=== PATIENT | female | born 1945 | race Caucasian/White ===

== ENCOUNTER 2021-05-09 16:21 | Emergency (ER) | payer MEDICARE ==
[~2021-05-09 16:21] MED LIST: BENZTROPINE MESY1 MG PO; CLARITIN10 MG PO; FLONASE ALLER15.8 ML; LEXAPRO20 MG PO; MELATONIN3 MG PO; PROTONIX 40MG T40 MG PO; RISPERDAL3 MG PO; ZESTRIL5 MG PO
== END 2021-05-09 17:52 | disposition home or self-care (01) ==
LOC: FER 16:21
DX: S60.221A Contusion of right hand, initial encounter (principal); M25.531 Pain in right wrist; M79.644 Pain in right finger(s); W01.0XXA Fall on same level from slipping, tripping and stumbling without subsequent striking against object, initial encounter
CPT/HCPCS: 73130

== ENCOUNTER 2021-08-01 14:47 | Inpatient (IN) | payer MEDICARE ==
[~2021-08-01] VITALS: Ht 162.6 cm; Wt 75.9 kg
[2021-08-01 16:20] LABS: BASOPHIL 0.6 % (0-2); EOSINOPHIL 2.3 % (0-7); HCT 38.9 % (37.0-47.0); HGB 12.9 g/dl (12.5-16.0); LYMPHOCYTE 45.3 % (15-48); MCH 32.2 pg (25.0-31.0); MCHC 33.2 g/dL (32.0-36.0); MONOCYTE 8.9 % (0-12); MPV 10.2 fL (6.0-9.5); NEUTROPHIL 42.5 % (41-80); NRBC 0; PLT 175 K/uL (150-400); RBC 4.01 M/uL (4.20-5.40)
[2021-08-01 16:28] LABS: ALBUMIN 3.2 g/dL (3.4-5.0); BILIRUBIN - TOTAL 0.2 mg/dL (0.2-1.0); BUN/CREAT RATIO (CALC) 12.6 RATIO; CREATININE 0.87 mg/dL (0.51-0.95); GLOBULIN (CALCULATION) 3.6 g/dL; MAGNESIUM 1.8 mg/dL (1.8-2.4); POTASSIUM 4.2 mmol/L (3.5-5.1); TOTAL PROTEIN 6.8 g/dL (6.4-8.2)
[2021-08-01 16:35] LABS: INR 1.03 (0.9-1.2); PROTHROMBIN TIME 12.9 SECONDS (11.8-13.4); PTT 31.1 SECONDS (24.4-34.7)
[2021-08-01 16:49] LABS: BILIRUBIN NEGATIVE (NEGATIVE); BLOOD NEGATIVE Ery/uL (NEGATIVE); CLARITY HAZY (CLEAR); COLOR YELLOW (YELLOW); GLUCOSE (U) NORMAL (NORMAL); LEUKOCYTES NEGATIVE Leu/uL (NEGATIVE); NITRITE NEGATIVE (NEGATIVE); PROTEIN NEGATIVE (NEGATIVE); SPECIFIC GRAVITY >=1.030 (1.001-1.030); UROBILINOGEN 0.2 mg/dL (0.2-1.0); pH 5.5 (5.0-9.0)
[2021-08-01] MEDS ORDERED: ALPHAGAN 020 DROPS/M OD (18:08)
[2021-08-01] MEDS ORDERED: SENNA PLUS 8.61 EACH PO (18:10)
[2021-08-01] MEDS ORDERED: DEPAKOTE SPRIN125 M2 PO (18:15)
[2021-08-01] MEDS ORDERED: SYNTHROID25 MCG PO (18:17)
[2021-08-01] MEDS ORDERED: OMEPRAZOLE 20MG20 MG PO (18:18)
[2021-08-01] MEDS ORDERED: VITAMIN D21250 MCG PO (18:19)
[2021-08-01] MEDS ORDERED: SEROQUEL 25MG T25 MG PO (18:23)
[2021-08-01] MEDS ORDERED: PRAVACHOL20 MG PO (18:25)
[2021-08-03 06:33] LABS: BASOPHIL 0.4 % (0-2); EOSINOPHIL 0 % (0-7); HCT 37.2 % (37.0-47.0); HGB 12.5 g/dl (12.5-16.0); LYMPHOCYTE 14.6 % (15-48); MCH 32.6 pg (25.0-31.0); MCHC 33.6 g/dL (32.0-36.0); MCV 96.9 fL (78.0-100.0); MONOCYTE 6.8 % (0-12); MPV 9.9 fL (6.0-9.5); NEUTROPHIL 77.7 % (41-80); NRBC 0; PLT 146 K/uL (150-400); RBC 3.84 M/uL (4.20-5.40); RDW 13.4 % (11.5-14.0); WBC 7.8 K/uL (4.0-10.5)
[2021-08-03 06:54] LABS: ALBUMIN 3.1 g/dL (3.4-5.0); BILIRUBIN - TOTAL 0.5 mg/dL (0.2-1.0); BUN/CREAT RATIO (CALC) 21.4 RATIO; CREATININE 0.84 mg/dL (0.51-0.95); GLOBULIN (CALCULATION) 3.9 g/dL; POTASSIUM 4.3 mmol/L (3.5-5.1)
[2021-08-04 07:13] LABS: HCT 33.1 % (37.0-47.0); MCH 32.4 pg (25.0-31.0); MCHC 33.2 g/dL (32.0-36.0); MCV 97.4 fL (78.0-100.0); MPV 9.9 fL (6.0-9.5); RBC 3.4 M/uL (4.20-5.40); RDW 13.4 % (11.5-14.0); WBC 9.6 K/uL (4.0-10.5)
[2021-08-05 06:15] LABS: BASOPHIL 0.5 % (0-2); EOSINOPHIL 1.1 % (0-7); HCT 30.1 % (37.0-47.0); HGB 9.9 g/dl (12.5-16.0); LYMPHOCYTE 23.8 % (15-48); MCH 31.8 pg (25.0-31.0); MCHC 32.9 g/dL (32.0-36.0); MCV 96.8 fL (78.0-100.0); MONOCYTE 9.4 % (0-12); NEUTROPHIL 64.8 % (41-80); NRBC 0; PLT 141 K/uL (150-400); RBC 3.11 M/uL (4.20-5.40); RDW 13.4 % (11.5-14.0); WBC 7.9 K/uL (4.0-10.5)
[2021-08-05 06:33] LABS: BUN/CREAT RATIO (CALC) 27.4 RATIO; CREATININE 0.95 mg/dL (0.51-0.95)
--- NOTE | 2021-08-05 10:15 | NUR ---
[address] SETH THAT THE PATIENT IS VERY SLEEPY AFTER TAKING THE PAIN MEDICATIONS, MAY NEED TO CHANGE THE PAIN MEDICATION TO SOMETHING THAT IS NOT SO STRONG. ALSO NOTIFED THAT HER IV SITE IS IN HER LEFT FOOT. REPORTS THAT SHE WILL LOOK AT THE PATIENT AND WRITE SOME ORDERS.
--- NOTE | 2021-08-05 17:40 | NUR ---
[address] YORK ABOUT THE IV IN THE LEFT FOOT AND THE ORDER SAID TO LEAVE IT FOR 12 HOURS. NEW ORDERS TO LEAVE THE IV SITE IN PLACE PATIENT A VERY HARD STICK. IV SITE FLUSHED EASILY AND THERE IS NO REDDNESS, EDMA OR TENDERNESS NOTED AT THE SITE. WILL CONTINUE TO MONITOR FOR CHANGES.
--- NOTE | 2021-08-06 15:00 | NUR ---
[facility] ACCEPTED PATIENT CLINICALLY AND WILL SUBMIT TO THE INSURANCE COMPANY. ADVISED PATRICE JONES.
[2021-08-07 06:06] LABS: BASOPHIL 0.5 % (0-2); HCT 28.2 % (37.0-47.0); HGB 9.2 g/dl (12.5-16.0); LYMPHOCYTE 30.2 % (15-48); MCH 31.9 pg (25.0-31.0); MCHC 32.6 g/dL (32.0-36.0); MCV 97.9 fL (78.0-100.0); MONOCYTE 9.2 % (0-12); MPV 9.4 fL (6.0-9.5); NEUTROPHIL 55.3 % (41-80); NRBC 0; PLT 163 K/uL (150-400); RBC 2.88 M/uL (4.20-5.40); RDW 13.4 % (11.5-14.0); WBC 6.5 K/uL (4.0-10.5)
[2021-08-07 06:43] LABS: BILIRUBIN - TOTAL 0.4 mg/dL (0.2-1.0); BUN/CREAT RATIO (CALC) 12.8 RATIO; CREATININE 0.78 mg/dL (0.51-0.95); GLOBULIN (CALCULATION) 3.3 g/dL; TOTAL PROTEIN 5.3 g/dL (6.4-8.2)
[2021-08-07] MEDS ORDERED: FEOSOL325 MG PO (09:54)
[2021-08-07] MEDS ORDERED: NORCO 5-325 TA1 EACH PO (09:54)
[2021-08-07] MEDS ORDERED: XARELTO10 MG PO (09:54)
--- NOTE | 2021-08-07 10:22 | NUR ---
PT HAS BEEN ACCEPTED BY [facility] BOTH CLINICALLY AND INSURANCE. PT. WILL D/C TODAY. PHONE NUMBER FOR REPORT [phone] FAX REPORT IS [phone].
--- NOTE | 2021-08-07 10:32 | NUR ---
TC TO PT. PATRICE, MRS. OSORIO. ADVISED THAT PT HAS BEEN APPROVED AT [facility]. PATRICE WANTS PT. TRANSFERRED BY EMS. ADVISED HER THAT EMS MAY CALL HER TO ADVISE THAT PT. MAY BE RESPONSIBLE FOR THE EMS TRANSPORATION. MRS. OSORIO ACKNOLEDGED UNDERSTANDING.
== END 2021-08-07 16:25 | DRG 522 ==
LOC: FER 14:47 → FMS 16:49
PROVIDERS: Emergency Medicine; Internal Medicine; Nurse Practitioner; Orthopaedic Surgery; ADMIT Hospitalist
PROC: 0SR90JA Replacement of Right Hip Joint with Synthetic Substitute, Uncemented, Open Approach (ICD-10-PCS; principal; 2021-08-03 13:30)
DX: S72.001A Fracture of unspecified part of neck of right femur, initial encounter for closed fracture (principal); F32.9 Major depressive disorder, single episode, unspecified; F32.A Depression, unspecified; E03.9 Hypothyroidism, unspecified; Z20.822 Contact with and (suspected) exposure to COVID-19; D64.89 Other specified anemias; I10 Essential (primary) hypertension; H40.9 Unspecified glaucoma; K59.09 Other constipation; Z88.0 Allergy status to penicillin; Z88.5 Allergy status to narcotic agent; Z86.73 Personal history of transient ischemic attack (TIA), and cerebral infarction without residual deficits; Z98.890 Other specified postprocedural states; W19.XXXA Unspecified fall, initial encounter; Y92.009 Unspecified place in unspecified non-institutional (private) residence as the place of occurrence of the external cause
CPT/HCPCS: 36415; 71045; 73501; 73502; 76000; 80048; 80053; 81003; 83735; 85025; 85610; 85730; 86850; 86900; 86901; 93005; 94760; 94762; 96374; 96375; 97110; 97162; 97166; 97530; 97530-GP; C1776; J0171; J1100; J1170; J1885; J2405; J2704; J2795; J3010; J7120; U0002

== ENCOUNTER 2021-11-27 16:05 | Emergency (ER) | payer MEDICARE ==
[~2021-11-27 16:05] MED LIST changes: +ALPHAGAN 020 DROPS/M OD; +DEPAKOTE SPRIN125 M2 PO; +FEOSOL325 MG PO; +NORCO 5-325 TA1 EACH PO; +OMEPRAZOLE 20MG20 MG PO; +PRAVACHOL20 MG PO; +SENNA PLUS 8.61 EACH PO; +SEROQUEL 25MG T25 MG PO; +SYNTHROID25 MCG PO; +VITAMIN D21250 MCG PO; +XARELTO10 MG PO
[2021-11-27] MEDS ORDERED: BACTROBAN NASAL1 GM TOP (18:13)
== END 2021-11-27 20:56 | disposition home or self-care (01) ==
LOC: FER 16:05
DX: S70.02XA Contusion of left hip, initial encounter (principal); Z88.0 Allergy status to penicillin; Z88.5 Allergy status to narcotic agent
CPT/HCPCS: 73502

== ENCOUNTER 2021-12-07 11:41 | Inpatient (IN) | payer MEDICARE ==
[~2021-12-07] VITALS: Ht 162.6 cm; Wt 60.1 kg
[~2021-12-07 11:41] MED LIST changes: +BACTROBAN NASAL1 GM TOP
[2021-12-07 14:14] LABS: BASOPHIL 0.6 % (0-2); EOSINOPHIL 0.6 % (0-7); HGB 14.7 g/dl (12.5-16.0); MCH 31.7 pg (25.0-31.0); MCHC 33.4 g/dL (32.0-36.0); MCV 94.8 fL (78.0-100.0); MONOCYTE 7.5 % (0-12); MPV 10.2 fL (6.0-9.5); NEUTROPHIL 51.1 % (41-80); NRBC 0.4; PLT 185 K/uL (150-400); RBC 4.64 M/uL (4.20-5.40); RDW 17.7 % (11.5-14.0); WBC 5.1 K/uL (4.0-10.5)
[2021-12-07 14:39] LABS: LACTIC ACID 3.7 mmol/L (0.4-1.9)
[2021-12-07 14:47] LABS: BILIRUBIN - TOTAL 1.2 mg/dL (0.2-1.0); BUN/CREAT RATIO (CALC) 25.9 RATIO; CREATININE 0.85 mg/dL (0.51-0.95); GLOBULIN (CALCULATION) 3.6 g/dL; MAGNESIUM 2.1 mg/dL (1.8-2.4); POTASSIUM 3.2 mmol/L (3.5-5.1); TOTAL PROTEIN 6.6 g/dL (6.4-8.2)
[2021-12-07 15:38] LABS: BILIRUBIN 2+ mg/dL (NEGATIVE); BLOOD 2+ Ery/uL (NEGATIVE); CLARITY CLEAR (CLEAR); COLOR YELLOW (YELLOW); GLUCOSE (U) TRACE mg/dL (NORMAL); LEUKOCYTES TRACE Leu/uL (NEGATIVE); NITRITE NEGATIVE (NEGATIVE); PROTEIN 1+ mg/dL (NEGATIVE); SPECIFIC GRAVITY >=1.030 (1.001-1.030)
[2021-12-07 15:41] LABS: BACTERIA 3+; MUCOUS TRACE
[2021-12-07] MEDS ORDERED: PRILOSEC20 MG PO (19:51)
[2021-12-07] MEDS ORDERED: VITAMIN D-40010 MCG PO (19:52)
[2021-12-07] MEDS ORDERED: LEXAPRO 10MG TA10 MG PO (19:54)
[2021-12-07] MEDS ORDERED: DEPAKOTE125 MG PO (19:55)
[2021-12-07] MEDS ORDERED: LEVOXYL25 MCG PO (19:55)
[2021-12-07] MEDS ORDERED: PRAVASTATIN SOD10 MG PO (20:02)
[2021-12-07] MEDS ORDERED: XERMELO250 MG PO (20:04)
[2021-12-09 07:24] LABS: BASOPHIL 0.8 % (0-2); EOSINOPHIL 3.4 % (0-7); HCT 33.5 % (37.0-47.0); HGB 10.9 g/dl (12.5-16.0); MCH 32.1 pg (25.0-31.0); MCHC 32.5 g/dL (32.0-36.0); MCV 98.5 fL (78.0-100.0); MONOCYTE 8.7 % (0-12); MPV 9.8 fL (6.0-9.5); NEUTROPHIL 35.7 % (41-80); NRBC 0; PLT 107 K/uL (150-400); WBC 4.9 K/uL (4.0-10.5)
[2021-12-09 07:42] LABS: BUN/CREAT RATIO (CALC) 15.1 RATIO; CREATININE 0.73 mg/dL (0.51-0.95)
[2021-12-09 07:57] LABS: POTASSIUM 2.3 mmol/L (3.5-5.1)
[2021-12-10 06:48] LABS: BASOPHIL 0.7 % (0-2); EOSINOPHIL 1.5 % (0-7); HCT 33.1 % (37.0-47.0); HGB 11.2 g/dl (12.5-16.0); MCH 32.2 pg (25.0-31.0); MCHC 33.8 g/dL (32.0-36.0); MCV 95.1 fL (78.0-100.0); MONOCYTE 9.1 % (0-12); MPV 10.1 fL (6.0-9.5); NEUTROPHIL 41.8 % (41-80); NRBC 0; PLT 121 K/uL (150-400); RBC 3.48 M/uL (4.20-5.40); RDW 17.3 % (11.5-14.0); WBC 5.8 K/uL (4.0-10.5)
[2021-12-10 07:09] LABS: BUN/CREAT RATIO (CALC) 8.8 RATIO; CREATININE 0.57 mg/dL (0.51-0.95)
[2021-12-10 07:30] LABS: POTASSIUM 2.4 mmol/L (3.5-5.1)
[2021-12-11 07:19] LABS: BUN/CREAT RATIO (CALC) 14.5 RATIO; CREATININE 0.62 mg/dL (0.51-0.95); POTASSIUM 3.6 mmol/L (3.5-5.1)
[2021-12-12 06:12] LABS: BASOPHIL 1.1 % (0-2); EOSINOPHIL 2.6 % (0-7); HCT 38.9 % (37.0-47.0); HGB 12.5 g/dl (12.5-16.0); LYMPHOCYTE 39.3 % (15-48); MCH 31.8 pg (25.0-31.0); MCHC 32.1 g/dL (32.0-36.0); MONOCYTE 11.4 % (0-12); MPV 10.6 fL (6.0-9.5); NEUTROPHIL 44.7 % (41-80); NRBC 0; RBC 3.93 M/uL (4.20-5.40); RDW 18.8 % (11.5-14.0); WBC 4.7 K/uL (4.0-10.5)
[2021-12-12 06:16] LABS: PLT 127 K/uL (150-400)
[2021-12-12 07:04] LABS: CREATININE 0.6 mg/dL (0.51-0.95); POTASSIUM 3.5 mmol/L (3.5-5.1)
[2021-12-12 07:08] LABS: IRON % SATURATION 61.1 %SAT (20-50)
[2021-12-14] MEDS ORDERED: LEVOXYL25 MCG PO (07:23)
[2021-12-14] MEDS ORDERED: XERMELO250 MG PO (07:30)
[2021-12-14] MEDS ORDERED: SEROQUEL 25MG T25 MG PO (11:12)
== END 2021-12-14 12:56 | disposition home or self-care (01) | DRG 871 ==
LOC: FER 11:41 → FMS 18:24
PROVIDERS: Emergency Medicine; Family Medicine; ADMIT Allergy & Immunology Allergy
DX: A41.9 Sepsis, unspecified organism (principal); G93.41 Metabolic encephalopathy; N30.01 Acute cystitis with hematuria; Z66 Do not resuscitate; E86.0 Dehydration; R65.20 Severe sepsis without septic shock; Z20.822 Contact with and (suspected) exposure to COVID-19; L89.120 Pressure ulcer of left upper back, unstageable; L89.220 Pressure ulcer of left hip, unstageable; I10 Essential (primary) hypertension; F41.9 Anxiety disorder, unspecified; F32.A Depression, unspecified; K21.9 Gastro-esophageal reflux disease without esophagitis; F03.90 Unspecified dementia, unspecified severity, without behavioral disturbance, psychotic disturbance, mood disturbance, and anxiety; E87.6 Hypokalemia; K59.01 Slow transit constipation; D69.6 Thrombocytopenia, unspecified; D64.9 Anemia, unspecified; E03.9 Hypothyroidism, unspecified; Z79.899 Other long term (current) drug therapy; Z88.0 Allergy status to penicillin; Z88.5 Allergy status to narcotic agent; Z98.41 Cataract extraction status, right eye; Z98.42 Cataract extraction status, left eye
CPT/HCPCS: 36415; 71045; 80048; 80053; 80202; 81001; 82607; 83540; 83550; 83605; 83735; 84145; 84443; 84484; 85025; 87040; 87088; 93005; 94010; 94760; 97162; 97166; 97530-GP; 97535; J0692; J1650; J3370; J7030; J7050; U0002

== ENCOUNTER 2022-01-25 22:27 | Inpatient (IN) | payer MEDICARE ==
[~2022-01-25] VITALS: Ht 160 cm; Wt 48.6 kg
[~2022-01-25 22:27] MED LIST changes: +DEPAKOTE125 MG PO; +LEVOXYL25 MCG PO; +LEXAPRO 10MG TA10 MG PO; +PRAVASTATIN SOD10 MG PO; +PRILOSEC20 MG PO; +VITAMIN D-40010 MCG PO; +XERMELO250 MG PO
[2022-01-25 23:30] LABS: BASOPHIL 0.3 % (0-2); EOSINOPHIL 0.1 % (0-7); HCT 51.2 % (37.0-47.0); HGB 15.8 g/dl (12.5-16.0); LYMPHOCYTE 21.5 % (15-48); MCH 33.3 pg (25.0-31.0); MCHC 30.9 g/dL (32.0-36.0); MPV 12.1 fL (6.0-9.5); NEUTROPHIL 73.2 % (41-80); NRBC 1.2; PLT 190 K/uL (150-400); RBC 4.74 M/uL (4.20-5.40); RDW 16.4 % (11.5-14.0); WBC 13.6 K/uL (4.0-10.5)
[2022-01-25 23:31] LABS: BILIRUBIN 2+ mg/dL (NEGATIVE); BLOOD 3+ Ery/uL (NEGATIVE); CLARITY CLEAR (CLEAR); COLOR YELLOW (YELLOW); GLUCOSE (U) NORMAL (NORMAL); LEUKOCYTES 2+ Leu/uL (NEGATIVE); NITRITE POSITIVE (NEGATIVE); PROTEIN 2+ mg/dL (NEGATIVE); SPECIFIC GRAVITY 1.025 (1.001-1.030)
[2022-01-25 23:35] LABS: INR 1.6 (0.9-1.2); PROTHROMBIN TIME 18.3 SECONDS (11.8-13.4); PTT 26.1 SECONDS (24.4-34.7)
[2022-01-25 23:46] LABS: BACTERIA 2+; URINARY WBC TNTC
[2022-01-25 23:47] LABS: GRANULAR CASTS MODERATE
[2022-01-25 23:51] LABS: ALBUMIN 3.6 g/dL (3.4-5.0); BILIRUBIN - TOTAL 1.2 mg/dL (0.2-1.0); CREATININE 2.62 mg/dL (0.51-0.95); FT4 (FREE T4) 1.4 ng/dL (0.76-1.46); MAGNESIUM 2.8 mg/dL (1.8-2.4); POTASSIUM 2.8 mmol/L (3.5-5.1); TOTAL PROTEIN 7.6 g/dL (6.4-8.2)
[2022-01-26 00:05] LABS: LACTIC ACID 8.2 mmol/L (0.4-1.9)
[2022-01-26 00:28] LABS: CORONAVIRUS 2019 SARS-COV-2 NEGATIVE (NEGATIVE); INFLUENZA A NAA NEGATIVE (NEGATIVE)
[2022-01-26 11:21] LABS: CREATININE 2.56 mg/dL (0.51-0.95); POTASSIUM 2.5 mmol/L (3.5-5.1)
[2022-01-26 11:32] LABS: LACTIC ACID 2.4 mmol/L (0.4-1.9)
[2022-01-26 14:38] LABS: CREATININE 2.44 mg/dL (0.51-0.95); POTASSIUM 2.9 mmol/L (3.5-5.1)
[2022-01-26 17:58] LABS: CREATININE 2.46 mg/dL (0.51-0.95); POTASSIUM 3.4 mmol/L (3.5-5.1)
--- NOTE | 2022-01-26 18:10 | NUR ---
20+ PUNCTURE SITE NOVOA FROM MULTIPLE ATTEMPTS AT CENTRAL LINE PLACEMENT OF RIJ,SC, AND BILATERAL FEMORAL SITES. PICTURES WERE TAKEN AND CHEST XRAY WAS OBTAINED TO CHECK FOR ANY INTERNAL DAMAGE SUCH PNEUMO. PATIENT WAS SENT TO ICU FLOOR WITH 24GA PERIPHERAL IV ACCESS. 30ML/KG IVF BOLUS WAS NOT GIVEN PER PROTOCOL AND VANC WAS NOT GIVEN. TROPONIN WAS ELEVATED, NO EKG WAS OBTAINED IN ED. NO TREATMENT OF POTASSIUM IN ED WITH A K OF 2.8. PATIENT WAS IN ED 2217 RN STATED VANC WAS NOT GIVEN IN REPORT BEFORE BRINGING PATIENT AND STATED SHE WAS GOING TO RECHART TO RECORD NOT GIVEN. SPOKE WITH GIN PRO SUP OF SITUATION. PATIENT DOES NOT HAVE FAMILY TO CONTACT ANYMORE. THE NEICE WAS ASSISTING WITH CARE BUT HAS AND GREAT NEPHEW NO LONGER KEEPS IN TOUCH. CONSULT FOR INITIATION OF LEGAL PAPERWORK FOR MELCHOR OF THE [facility]. CALLED [facility] TO CONFIRM SITUATION AND THEY CONFIRMED THERE WERE NO OTHER FAMILY TO CONTACT. ALSO CHECKED ABOUT PATIENTS BASELINE, STAFF STATED PATIENT ONLY SAYS FEW WORDS AND WILL RARELY FOLLOW COMMANDS. HAS BECOME A FAILURE TO THRIVE FOR OVER A MONTH AND REFUSING TO TAKE MEDICATIONS. CENTRAL LINE WAS PLACED RIJ WITH NO COMPLICATIONS. CONSENT FORM WAS COMPLETED BY STAFF A EMERGENT SITUATION DUE TO LACK OF PROPER IV ACCESS. MACHINE ENGRAVER GIN IS AWARE OF FULL SITUATION WITH PATIENT.
[2022-01-26 23:30] LABS: CREATININE 2.25 mg/dL (0.51-0.95); POTASSIUM 3.1 mmol/L (3.5-5.1)
[2022-01-27 05:27] LABS: BASOPHIL 0.4 % (0-2); EOSINOPHIL 0.3 % (0-7); HCT 29.4 % (37.0-47.0); LYMPHOCYTE 35.1 % (15-48); MCH 33.8 pg (25.0-31.0); MCHC 30.3 g/dL (32.0-36.0); MCV 111.8 fL (78.0-100.0); MONOCYTE 4.9 % (0-12); MPV 11.8 fL (6.0-9.5); NEUTROPHIL 57.7 % (41-80); NRBC 1.8; PLT 115 K/uL (150-400); RBC 2.63 M/uL (4.20-5.40); RDW 16.7 % (11.5-14.0)
[2022-01-27 05:40] LABS: HGB 8.9 g/dl (12.5-16.0)
[2022-01-27 06:28] LABS: ALBUMIN 2.3 g/dL (3.4-5.0); BILIRUBIN - DIRECT 0.1 mg/dL (0.00-0.20); BILIRUBIN - TOTAL 0.6 mg/dL (0.2-1.0); BUN/CREAT RATIO (CALC) 36.4 RATIO; C-REACTIVE PROTEIN 0.6 mg/dL (<=0.90); CREATININE 1.95 mg/dL (0.51-0.95); PHOSPHORUS 1.5 mg/dL (2.6-4.7); POTASSIUM 3.2 mmol/L (3.5-5.1)
[2022-01-27 06:37] LABS: GLOBULIN (CALCULATION) 2.5 g/dL; TOTAL PROTEIN 4.8 g/dL (6.4-8.2)
[2022-01-27 12:12] LABS: BUN/CREAT RATIO (CALC) 34.7 RATIO; CREATININE 1.7 mg/dL (0.51-0.95); POTASSIUM 3.3 mmol/L (3.5-5.1)
[2022-01-27 16:25] LABS: BASOPHIL 0.3 % (0-2); EOSINOPHIL 0.6 % (0-7); HCT 28.4 % (37.0-47.0); HGB 8.7 g/dl (12.5-16.0); LYMPHOCYTE 33.7 % (15-48); MCH 33.7 pg (25.0-31.0); MCHC 30.6 g/dL (32.0-36.0); MCV 110.1 fL (78.0-100.0); MONOCYTE 4.2 % (0-12); MPV 10.9 fL (6.0-9.5); NEUTROPHIL 59.6 % (41-80); NRBC 2.1; PLT 102 K/uL (150-400); RBC 2.58 M/uL (4.20-5.40); RDW 16.5 % (11.5-14.0); WBC 11.6 K/uL (4.0-10.5)
[2022-01-27 16:47] LABS: ALBUMIN 2.2 g/dL (3.4-5.0); BILIRUBIN - DIRECT 0.2 mg/dL (0.00-0.20); BILIRUBIN - TOTAL 0.6 mg/dL (0.2-1.0); GLOBULIN (CALCULATION) 2.6 g/dL; TOTAL PROTEIN 4.8 g/dL (6.4-8.2)
[2022-01-27 16:48] LABS: CREATININE 1.57 mg/dL (0.51-0.95); POTASSIUM 3.2 mmol/L (3.5-5.1)
--- NOTE | 2022-01-27 18:33 | NUR ---
SPOKE WITH PARTNER REGARDING [facility] AND STATUS. GAVE FULL REPORT AND CONCERNS. HE DIDNT UNDERSTAND WHY PATIENT WASNT MAKING URINE EVEN THOUGH CREAT HAD IMPROVED 2.25 TO 1.95 AND BUN 82 TO 71. HE WAS CONCERNED SOMETHING WAS WRONG WITH CATHETER. I EXPLAINED THE CATHETER WAS CHECKED AND PATIENT WAS BLADDER SCANNED TO CONFIRM NO RESIDUAL. HE STATED WOULD CALL SUNDAY 01/28 TO CHECK IN. NO CHANGE WAS DONE WITH FLUIDS
[2022-01-27 19:45] LABS: BUN/CREAT RATIO (CALC) 32.9 RATIO; CREATININE 1.52 mg/dL (0.51-0.95); POTASSIUM 3.4 mmol/L (3.5-5.1)
[2022-01-27 23:05] LABS: BUN/CREAT RATIO (CALC) 31.2 RATIO; CREATININE 1.41 mg/dL (0.51-0.95); PHOSPHORUS 2.8 mg/dL (2.6-4.7); POTASSIUM 3.5 mmol/L (3.5-5.1)
[2022-01-28 05:37] LABS: BASOPHIL 0.4 % (0-2); EOSINOPHIL 1.2 % (0-7); HCT 26.2 % (37.0-47.0); HGB 8.2 g/dl (12.5-16.0); LYMPHOCYTE 40.2 % (15-48); MCHC 31.3 g/dL (32.0-36.0); MCV 108.7 fL (78.0-100.0); MONOCYTE 4.1 % (0-12); MPV 11.3 fL (6.0-9.5); NEUTROPHIL 52.3 % (41-80); NRBC 2.1; PLT 100 K/uL (150-400); RBC 2.41 M/uL (4.20-5.40); RDW 15.9 % (11.5-14.0)
[2022-01-28 05:57] LABS: ALBUMIN 2.2 g/dL (3.4-5.0); BILIRUBIN - TOTAL 0.7 mg/dL (0.2-1.0); BUN/CREAT RATIO (CALC) 30.1 RATIO; CREATININE 1.23 mg/dL (0.51-0.95); GLOBULIN (CALCULATION) 2.5 g/dL; MAGNESIUM 1.3 mg/dL (1.8-2.4); PHOSPHORUS 2.4 mg/dL (2.6-4.7); POTASSIUM 3.3 mmol/L (3.5-5.1); TOTAL PROTEIN 4.7 g/dL (6.4-8.2)
--- NOTE | 2022-01-28 10:35 | NUR ---
01/28/22 Ms. Goyal is oriented to self and only. She resides at [facility]isted [facility]. They will accept her back per Casper Shepard, Director. [facility] and [facility] are current. OFE Chavez, reports the guardianship hearing to be scheduled for March 13, 2022.
[2022-01-28 12:44] LABS: CREATININE 1.07 mg/dL (0.51-0.95); MAGNESIUM 1.8 mg/dL (1.8-2.4); PHOSPHORUS 4.6 mg/dL (2.6-4.7); POTASSIUM 3.6 mmol/L (3.5-5.1)
[2022-01-28 18:16] LABS: CREATININE 0.96 mg/dL (0.51-0.95); POTASSIUM 3.3 mmol/L (3.5-5.1)
[2022-01-29] LABS: BUN/CREAT RATIO (CALC) 22.6 RATIO; CREATININE 0.84 mg/dL (0.51-0.95); POTASSIUM 3.3 mmol/L (3.5-5.1)
[2022-01-29 05:40] LABS: BASOPHIL 0.2 % (0-2); HCT 26.7 % (37.0-47.0); HGB 8.6 g/dl (12.5-16.0); LYMPHOCYTE 35.4 % (15-48); MCH 33.7 pg (25.0-31.0); MCHC 32.2 g/dL (32.0-36.0); MONOCYTE 4.8 % (0-12); NEUTROPHIL 56.1 % (41-80); RBC 2.55 M/uL (4.20-5.40); RDW 15.2 % (11.5-14.0); WBC 8.1 K/uL (4.0-10.5)
[2022-01-29 05:42] LABS: MCV 104.7 fL (78.0-100.0); PLT 78 K/uL (150-400)
[2022-01-29 06:07] LABS: BUN/CREAT RATIO (CALC) 19.8 RATIO; CREATININE 0.86 mg/dL (0.51-0.95); MAGNESIUM 1.8 mg/dL (1.8-2.4); PHOSPHORUS 2.8 mg/dL (2.6-4.7)
[2022-01-30 05:53] LABS: BASOPHIL 0.6 % (0-2); EOSINOPHIL 2.5 % (0-7); HCT 23.2 % (37.0-47.0); HGB 7.4 g/dl (12.5-16.0); MCH 33.8 pg (25.0-31.0); MCHC 31.9 g/dL (32.0-36.0); MCV 105.9 fL (78.0-100.0); MONOCYTE 6.7 % (0-12); MPV 10.8 fL (6.0-9.5); NEUTROPHIL 52.9 % (41-80); NRBC 0.4; RBC 2.19 M/uL (4.20-5.40); RDW 15.3 % (11.5-14.0); WBC 5.2 K/uL (4.0-10.5)
[2022-01-30 06:14] LABS: PLT 69 K/uL (150-400)
[2022-01-30 06:31] LABS: BUN/CREAT RATIO (CALC) 10.7 RATIO; CREATININE 0.75 mg/dL (0.51-0.95); POTASSIUM 3.6 mmol/L (3.5-5.1)
--- NOTE | 2022-01-30 19:57 | NUR ---
FAMILY MEMBER CALLED, SAURABH OSORIO SHE IS SISTER IN LAW, HER IS PATIENT'S BROTHER. SHE STATED SHE THOUGHT APS WAS ALREADY INVOLVED FROM A MONTH AGO. ALSO STATED SHE AND HER DID NOT FEEL COMFORTABLE MAKING DECISIONS ON HER BEHALF AND WOULD NOT CONSENT TO RECEIVING BLOOD AT THIS TIME. DR AND MYSELF HAD TO SIGN PAPERWORK SINCE PATIENT REQUIRED PRBC. ONLY GAVE BRIEF IN GENERAL INFORMATION ABOUT PATIENT CASE AND DID NOT GO INTO SPECIFICS. EXPLAINED SUSSY HANDLES THE M[facility]CHOR OF THE [facility] TYPE SITUATIONS AND GAVE SUSSY THE FAMILY MEMBERS PHONE NUMBER TO ANSWER FURTHER QUESTIONS SHE MAY HAVE. PATIENT IS STILL LIVING IN [place] BUT HAS SUFFERED A STROKE AND IS NON-VERBAL AND UNABLE TO MAKE EXECUTIVE DECISIONS REGARDING CARE. NO OTHER FAMILY IS LIVING. PATIENT PREVIOUS POA HAS SINCE AND A GREAT NEPHEW WHO HAS NOT BEEN IN CONTACT FOR MONTHS. PROCESS FOR [facility] HAS ALREADY BEEN INITIATED AND HEARING WILL BE IN FEBRUARY.
[2022-01-31 05:40] LABS: BUN/CREAT RATIO (CALC) 6.3 RATIO; CREATININE 0.63 mg/dL (0.51-0.95); POTASSIUM 3.1 mmol/L (3.5-5.1)
[2022-01-31 06:15] LABS: MAGNESIUM 1.2 mg/dL (1.8-2.4)
[2022-01-31 06:25] LABS: BASOPHIL 0.5 % (0-2); EOSINOPHIL 2.8 % (0-7); HCT 37.9 % (37.0-47.0); LYMPHOCYTE 33.9 % (15-48); MCH 31.6 pg (25.0-31.0); MCHC 34.3 g/dL (32.0-36.0); MPV 10.7 fL (6.0-9.5); NRBC 0.3; PLT 111 K/uL (150-400); RBC 4.11 M/uL (4.20-5.40); RDW 19.9 % (11.5-14.0); WBC 6.3 K/uL (4.0-10.5)
[2022-01-31 06:40] LABS: MCV 92.2 fL (78.0-100.0)
--- NOTE | 2022-01-31 16:19 | NUR ---
01/31/22 Ms. Goyal does not have a health care surrogate or next of kin to make her medical decisions. Patient either needs a PEG tube or to be Palliative / Hospice care. - A message has been left for Cassidy Corbett, [facility], for the purpose of again requesting for the guardianship hearing to be emergent. The guardianship hearing is currently scheduled for 03/13/22.
[2022-01-31 16:30] LABS: BUN/CREAT RATIO (CALC) 6.5 RATIO; CREATININE 0.62 mg/dL (0.51-0.95); POTASSIUM 3.9 mmol/L (3.5-5.1)
[2022-02-01 05:56] LABS: BASOPHIL 0.7 % (0-2); EOSINOPHIL 3.2 % (0-7); HCT 36.3 % (37.0-47.0); HGB 12.2 g/dl (12.5-16.0); LYMPHOCYTE 42.7 % (15-48); MCH 31.7 pg (25.0-31.0); MCHC 33.6 g/dL (32.0-36.0); MCV 94.3 fL (78.0-100.0); MONOCYTE 8.9 % (0-12); MPV 10.3 fL (6.0-9.5); NEUTROPHIL 43.8 % (41-80); NRBC 0; PLT 112 K/uL (150-400); RBC 3.85 M/uL (4.20-5.40); RDW 19.4 % (11.5-14.0); WBC 4.4 K/uL (4.0-10.5)
[2022-02-01 06:11] LABS: BUN/CREAT RATIO (CALC) 4.8 RATIO; CREATININE 0.63 mg/dL (0.51-0.95); POTASSIUM 3.6 mmol/L (3.5-5.1)
--- NOTE | 2022-02-01 18:27 | NUR ---
NOTIFIED MD THAT I COULD NOT FLUSH DOBHOFF. REQUESTED KUB. VIKI Henry RN ATTEMPTED TO FLUSH WELL WITH NO SUCCESS. KUB ORDERED AND NO CHANGE FROM INITIAL IMAGE AT TIME OF INSERTION. NO FURTHER ORDERS FROM MD. TUBE FEED STILL D/C AT THIS TIME.
--- NOTE | 2022-02-01 18:37 | NUR ---
DOBHOFF D/C PER MD ORDER. TUBE INTACT. NO S/S DISTRESS.
[2022-02-03 11:24] LABS: BASOPHIL 0.8 % (0-2); EOSINOPHIL 3.5 % (0-7); HCT 37.2 % (37.0-47.0); HGB 12.6 g/dl (12.5-16.0); LYMPHOCYTE 41.1 % (15-48); MCH 31.8 pg (25.0-31.0); MCHC 33.9 g/dL (32.0-36.0); MCV 93.9 fL (78.0-100.0); MONOCYTE 10.1 % (0-12); MPV 9.7 fL (6.0-9.5); NEUTROPHIL 43.2 % (41-80); NRBC 0; PLT 127 K/uL (150-400); RBC 3.96 M/uL (4.20-5.40); RDW 18.4 % (11.5-14.0); RETICULOCYTE COUNT 2.6 % (1.0-2.0); WBC 3.8 K/uL (4.0-10.5)
[2022-02-03 12:06] LABS: BILIRUBIN - TOTAL 0.8 mg/dL (0.2-1.0); BUN/CREAT RATIO (CALC) 4.9 RATIO; CREATININE 0.61 mg/dL (0.51-0.95); GLOBULIN (CALCULATION) 2.6 g/dL; MAGNESIUM 1.5 mg/dL (1.8-2.4); PHOSPHORUS 2.9 mg/dL (2.6-4.7); POTASSIUM 3.5 mmol/L (3.5-5.1); TOTAL PROTEIN 4.6 g/dL (6.4-8.2)
[2022-02-03 12:16] LABS: IRON % SATURATION 35.6 %SAT (20-50)
[2022-02-03 13:02] LABS: FOLIC ACID (SERUM) 6.7 ng/mL (8.6-58.9)
--- NOTE | 2022-02-05 15:27 | NUR ---
OFE Chavez, reports the guardianship hearing to be scheduled for 02/07/22 at 12:30.
[2022-02-06 04:53] LABS: BASOPHIL 0.6 % (0-2); EOSINOPHIL 1.5 % (0-7); HGB 12.4 g/dl (12.5-16.0); LYMPHOCYTE 43.6 % (15-48); MCH 31.6 pg (25.0-31.0); MCHC 33.5 g/dL (32.0-36.0); MCV 94.1 fL (78.0-100.0); MONOCYTE 7.3 % (0-12); MPV 9.5 fL (6.0-9.5); NEUTROPHIL 46.8 % (41-80); NRBC 0; PLT 151 K/uL (150-400); RBC 3.93 M/uL (4.20-5.40); RDW 18.2 % (11.5-14.0); WBC 4.8 K/uL (4.0-10.5)
[2022-02-06 05:13] LABS: BUN/CREAT RATIO (CALC) 5.4 RATIO; CREATININE 0.56 mg/dL (0.51-0.95); POTASSIUM 3.8 mmol/L (3.5-5.1)
--- NOTE | 2022-02-08 13:52 | NUR ---
02/08 Per OFE Chavez, the Courts appointed State Guardian, Mary Birmingham, / (o) [phone] as guardian. Jamila Stuart, Shredding Machine Operator, . Ms. Birmingham reports that the [facility] Office has not received the appointment documents and therefore cannot act on the case. [phone] was requested to fax the appointment to [facility].
--- NOTE | 2022-02-08 16:15 | NUR ---
02/08/22 State documents to request DNR and end of Life have been given to Dr. Morgan via nursing to complete and submit to the State.
--- NOTE | 2022-02-11 13:19 | NUR ---
02/11/22 Silvia Baez, [facility] Office / Nursing Department, has approved the request for DNR ([phone]). Ms. Baez, expects to have a response to the End of Life request this afternoon or tomorrow.
--- NOTE | 2022-02-12 15:17 | NUR ---
02/12/22 3:18 A voicemail was left for Ms. Silvia Palacios re: decision for request for end of life care.
--- NOTE | 2022-02-13 10:22 | NUR ---
02/13/22 [facility] approved the request for End of Life Care at 4:30 on 02/12. - vicky Shepard, [facility]isted [facility], would accept patient back with Hospice Care. - Jamila Heath, Guardianship Clinical Dietician, , reports that she will need to speak with her scientific laboratory supervisor re: patient returning to [facility].
--- NOTE | 2022-02-15 13:57 | NUR ---
02/15/22 At 4:30 on 02/13/22 Binh Llanes, State Guardiansip, reported that patient is not appropriate to return to Assisted Living. On 02/14/22 referrals were sent to multiple facilities to include all [facility]. [facility], [facility], and [facility] have declined to accept.
--- NOTE | 2022-02-15 14:56 | NUR ---
02/15/22 [facility] has agreed to submit to insurance for authorization. However, patient has an outstanding bill from a previous admission of $802.07 which must be paid prior to accepting patient. - Sheron Rao at [facility] will contaact the Guardianship Fiduciary Department to discuss this issue and to determine if patient would be Medicaid elegible.
--- NOTE | 2022-02-20 14:46 | NUR ---
02/20/22 [facility] has declined to accept patient. [facility] reports that their facilities will not accept Medicaid pending. - [facility] has been sent updated clinicals per insurance request. - Referrals havw been submitted to [facility] and [facility] [place].
--- NOTE | 2022-02-21 14:49 | NUR ---
02/21 Insurance denied admission to [facility] for SNF due to patient not meeting skilled criteria. - Hospice reviewed patient and would not be able to provide services at [facility] because no one would be able to administer end of life medications. - A referral was made to [facility] for inpatient Palliative Care. - Awaiting response. - A voicemail has been left at [facility], / Hazel Kaufman - Director - [phone].
--- NOTE | 2022-02-22 12:28 | NUR ---
02/22 [facility] will accept patient with advance payment for one months stay.
--- NOTE | 2022-02-22 12:39 | NUR ---
02/22/22 Sofia with [facility], inpatient Palliative Care, reports that patient is not displaying any need for symptom management and therefore does not meet criteria for inpatient Hospice services.
--- NOTE | 2022-03-07 10:43 | NUR ---
03/07/22 [facility] and [facility] will evaulate patient at bedside today.
--- NOTE | 2022-03-09 14:30 | NUR ---
[facility] CALLED CONCERNING PATIENT, WILL NOT BE ABLE TO DO ADMISSIONS UNTIL FRIDAY. ISSUE WITH INSURANCE AND MEDICATONS
[2022-03-11] MEDS ORDERED: SILVASORB44.4 ML TOP (13:02)
[2022-03-11] MEDS ORDERED: LORAZEPAM2 MG/1 M2 PO/SL (13:02)
--- NOTE | 2022-03-11 14:45 | NUR ---
03/11/22 [facility] and [facility] has accepted Ms. Goyal with a one month financial agreement with [employer]. [facility] reports to have verified insurance coverage for medications. Patient meets criteria for EMS transport. - Cassidy Birmingham, guardian, , reports to be completing the admission documents.
--- NOTE | 2022-03-11 17:02 | NUR ---
REPORT TO MP AT [facility] AT [phone]
--- NOTE | 2022-03-11 17:55 | NUR ---
ATTEMPT TO CALL GUARDIAN PER NUMBER IN NOTES, UNABLE TO LEAVE MESSAGE
== END 2022-03-11 17:46 | DRG 871 ==
LOC: FER 22:27 → FICU 01-26 02:06 → FTCU 02-02 18:00 → FMS 02-17 06:19
PROVIDERS: Emergency Medicine; Family Medicine; Internal Medicine; Internal Medicine Nephrology; Nurse Practitioner; Nurse Practitioner Family; ADMIT Internal Medicine
PROC: 3E03329 Introduction of Other Anti-infective into Peripheral Vein, Percutaneous Approach (ICD-10-PCS; principal; 2022-01-25)
PROC: 0T9B70Z Drainage of Bladder with Drainage Device, Via Natural or Artificial Opening (ICD-10-PCS; 2022-01-25)
PROC: 3E033XZ Introduction of Vasopressor into Peripheral Vein, Percutaneous Approach (ICD-10-PCS; 2022-01-26)
PROC: 02HV33Z Insertion of Infusion Device into Superior Vena Cava, Percutaneous Approach (ICD-10-PCS; 2022-01-26)
PROC: B24BZZZ Ultrasonography of Heart with Aorta (ICD-10-PCS; 2022-01-28)
PROC: 30233N1 Transfusion of Nonautologous Red Blood Cells into Peripheral Vein, Percutaneous Approach (ICD-10-PCS; 2022-01-30)
PROC: 30233N1 Transfusion of Nonautologous Red Blood Cells into Peripheral Vein, Percutaneous Approach (ICD-10-PCS; 2022-01-30)
DX: A41.59 Other Gram-negative sepsis (principal); R65.21 Severe sepsis with septic shock; G92.8 Other toxic encephalopathy; I21.A1 Myocardial infarction type 2; J96.01 Acute respiratory failure with hypoxia; E43 Unspecified severe protein-calorie malnutrition; N17.0 Acute kidney failure with tubular necrosis; R57.1 Hypovolemic shock; E87.0 Hyperosmolality and hypernatremia; N30.01 Acute cystitis with hematuria; R64 Cachexia; L76.32 Postprocedural hematoma of skin and subcutaneous tissue following other procedure; Z66 Do not resuscitate; Z20.822 Contact with and (suspected) exposure to COVID-19; B96.4 Proteus (mirabilis) (morganii) as the cause of diseases classified elsewhere; F03.90 Unspecified dementia, unspecified severity, without behavioral disturbance, psychotic disturbance, mood disturbance, and anxiety; D50.9 Iron deficiency anemia, unspecified; L89.222 Pressure ulcer of left hip, stage 2; L89.122 Pressure ulcer of left upper back, stage 2; L89.891 Pressure ulcer of other site, stage 1; E87.6 Hypokalemia; E86.0 Dehydration; E83.39 Other disorders of phosphorus metabolism; R62.7 Adult failure to thrive; E03.9 Hypothyroidism, unspecified; F41.9 Anxiety disorder, unspecified; F32.A Depression, unspecified; Z86.73 Personal history of transient ischemic attack (TIA), and cerebral infarction without residual deficits; N20.0 Calculus of kidney; I36.1 Nonrheumatic tricuspid (valve) insufficiency; R13.10 Dysphagia, unspecified; I12.9 Hypertensive chronic kidney disease with stage 1 through stage 4 chronic kidney disease, or unspecified chronic kidney disease; N18.2 Chronic kidney disease, stage 2 (mild); D75.89 Other specified diseases of blood and blood-forming organs; R94.31 Abnormal electrocardiogram [ECG] [EKG]; D69.6 Thrombocytopenia, unspecified; E83.42 Hypomagnesemia; R60.0 Localized edema; R00.1 Bradycardia, unspecified; Z79.899 Other long term (current) drug therapy; Z98.890 Other specified postprocedural states; Z88.0 Allergy status to penicillin; Z88.5 Allergy status to narcotic agent; Z82.49 Family history of ischemic heart disease and other diseases of the circulatory system; Z98.41 Cataract extraction status, right eye; Z83.3 Family history of diabetes mellitus; Z98.42 Cataract extraction status, left eye
CPT/HCPCS: 36415; 36430; 70450; 71045; 71250; 74018; 80048; 80053; 80076; 80164; 81001; 82607; 82746; 82962; 83010; 83036; 83540; 83550; 83605; 83615; 83735; 83880; 84100; 84145; 84439; 84443; 84484; 85025; 85610; 85730; 86140; 86850; 86900; 86901; 86922; 87040; 87076; 87088; 87186; 92526; 93005; 93971; 94010; 94762; 96374; 96375; 97162; 97165; C9113; J0692; J0696; J1644; J1650; J2060; J3370; J3411; J3475; J3480; J7030; J7040; J7050; J7070; J7120; P9016; U0002